=== PATIENT | female | born 1955 | race Caucasian/White ===

== ENCOUNTER → 2020-09-01 | Emergency (ER) | payer OTHER ==
[~2020-09-01] MED LIST: FAMOTIDINE 20 MG/2 ML VIAL IV ONE; LORAZEPAM 1 MG TABLET ONE; LORazepam 2 MG/ML VIAL ONE; METOCLOPRAMIDE 10 MG/2mL INJ ONE
[2020-09-01 10:15] LABS: Absolute Lymphocytes (CBC) 2.1 K/uL (0.7-4.9); Basophils % 1.1 % (0-1.3); Hematocrit 39.7 % (36.0-45.0); Lymphocytes % 34.1 % (15.3-44.8); MPV 7.6 fL (7.6-11.3); RBC Red Blood Cell Count 4.45 M/uL (3.86-4.86)
--- NOTE | 2020-09-01 10:17 | RAD REPORT ---
EXAM DESCRIPTION: CT - Head Brain Wo Cont - 09/01/2020 10:04 am CLINICAL HISTORY: HEADACHE COMPARISON: HEAD BRAIN W O CONTRAST dated 12/19/2011 TECHNIQUE: Axial 5 mm thick images of the head were obtained without IV contrast. All CT scans are performed using dose optimization technique as appropriate and may include automated exposure control or mA/KV adjustment according to patient size. FINDINGS: No intracranial hemorrhage, mass, edema or shift of mid-line structures. No acute infarcti on changes seen. No abnormal extra-axial fluid collections. Ventricles are normal. Mastoid air cells and visualized portions of the paranasal sinuses are clear. No acute bony findings. No significant changes from comparison. IMPRESSION: Negative non-contrast CT head examination.
[2020-09-01 11:14] LABS: ALT/SGPT 16 U/L (12-78); AST/SGOT 10 U/L (15-37); Albumin 3.6 g/dL (3.4-5.0); Alkaline Phosphatase 66 U/L (45-117); BUN Blood Urea Nitrogen 9 mg/dL (7-18); Bicarbonate 29 mmol/L (21-32); Bilirubin Direct 0.1 mg/dL (0-0.2); Bilirubin Total 0.5 mg/dL (0.2-1.0); Glucose Level 89 mg/dL (74-106); Magnesium 1.9 mg/dL (1.8-2.4); NT PRO-BNP 19 pg/mL (<125); Protein, Total 7.3 g/dL (6.4-8.2); Sodium Level 139 mmol/L (136-145); Troponin (Emerg Dept Use Only) < 0.02 ng/mL (0.0-0.045)
--- NOTE | 2020-09-01 11:40 | ER ---
Nurse's Notes [facility] Name: Nataliia Robin Age: 65 yrs Sex: Female : 1955 Arrival Date: 09/01/2020 Time: 09:03 Bed 19 Private MD: Diagnosis: Chest pain, unspecified Presentation: 09/01 09:21 Chief complaint: Patient states: i started having like a chest pain a week ago, that tw2 radiates to my upper back right after eating, tums and pepcid helped, but then food aggravated it so i stopped eating, it felt like a gallbladder attack pain but damon had mine removed, then this morning the pain started again in my upper chest but i hadnt eaten, then my LEFT eye started to be blurry at 0820am, i got the 2nd Covid vaccine Friday, then Friday i got a migraine, so i dont know if its from that, but also i got whelps about 6 days ago and had to get a steroid dose pack, also i took a baby aspirin this morning. Coronavirus screen: At this time, the client does not indicate any symptoms associated with coronavirus-19. Ebola Screen: Patient denies travel to an Ebola-affected area in the 21 days before illness onset. Initial Sepsis Screen: Does the patient meet any 2 criteria? No. Patient's initial sepsis screen is negative. Does the patient have a suspected source of infection? No. Patient's initial sepsis screen is negative. Risk Assessment: Do you want to hurt yourself or someone else? Patient reports no desire to harm self or others. Onset of symptoms was September 01, 2020. 09:21 Method Of Arrival: Ambulatory tw2 09:21 Acuity: ZION 3 tw2 Triage Assessment: 09:26 General: Appears in no apparent distress. slender, well groomed, Behavior is anxious. tw2 Pain: Complains of pain in xyphoid area and mid-sternal area Pain radiates to back. EENT: Reports blurred vision in left eye since 0820. Neuro: Level of Consciousness is awake, alert, obeys commands, Oriented to person, place, time, situation, Reports headache. Cardiovascular: Capillary refill < 3 seconds Patient's skin is warm and dry. Respiratory: Airway is patent Respiratory effort is even, unlabored, Respiratory pattern is regular, symmetrical. GI: No signs and/or symptoms were reported involving the gastrointestinal system. Abdomen is round non-distended. : No signs and/or symptoms were reported regarding the genitourinary system. Derm: No signs and/or symptoms reported regarding the dermatologic system. Musculoskeletal: Range of motion: intact in all extremities. Historical: - Allergies: 09: hydrocodone bitartrate (bulk); tw2 :25 ACETAMINOPHEN; tw2 :25 Latex, Natural Rubber; tw2 - Home Meds: : lisinopril 10 mg Oral tab 1 tab once daily [Active]; aspirin 81 mg Oral TbEC 1 tab once tw2 daily [Active]; gabapentin 300 mg oral cap 1 cap 2 times a day [Active]; "mag salt" [Active]; - PMHx: : Hypertension; Migraines; Fibromyalgia; tw2 - PSHx: : Cholecystectomy; Hysterectomy; tw2 - Immunization history:: Client reports receiving the 2nd dose of the Covid vaccine, Date received: August 28, 2020. - Social history:: Smoking status: Patient/guardian denies using alcohol, street drugs, The patient lives with family. - Family history:: not pertinent. Screenin:30 Abuse screen: Denies threats or abuse. Denies injuries from another. Nutritional tw2 screening: No deficits noted. Tuberculosis screening: Fall Risk None identified. Assessment: 09:28 Reassessment: see triage assessment. tw2 09:28 Reassessment: provider notified of pts triage information. tw2 09:31 Pain: Pain began 2-3 days ago. tw2 11:39 Reassessment: Patient and/or family updated on plan of care and expected duration. Pain tw2 level reassessed. Patient is alert, oriented x 3, equal unlabored respirations, skin warm/dry/pink. pt asking to speak to me, states "i am just too anxious, i am having a panic attack, the told me he wanted me to stay but i dont think i can i am just nervous, so maybe i need something", provider notified, medication offered to pt, pt states "i dont think i want it, i was addicted to pain pills so they said i shouldn't take anything", pt educated to medication ordered, pt refusing at this time, provider notified. 12:18 Reassessment: pt states " i am just not going to be able to be calm down enough to stay tw2 here, i just want to go home, i think i am having ptsd from my sister dying and being with her in a hospital for like 2 years", provider notified, educated as to the advise of being AMA. Vital Signs: 09:21 BP 160 / 87; Pulse 87; Resp 17; Temp 98.3(TE); Pulse Ox 99% on R/A; Weight 74.84 kg (R);tw2 10:40 BP 137 / 70; Pulse 72; Resp 19; Pulse Ox 99% on R/A; tw2 ED Course: 09:03 Patient arrived in ED. ds1 09:13 Nirmala Pena, JOÃO is Primary Nurse. tw2 09:23 Triage completed. tw2 09:26 Arm band placed on. tw2 09:28 Placed in gown. Bed in low position. Call light in reach. salvage engineering technician on. Pulse ox tw2 on. NIBP on. 09:31 Luz Small MD is Attending Physician. ma2 09:31 Patient maintains SpO2 saturation greater than 95% on room air. tw2 09:55 Inserted saline lock: 20 gauge in right antecubital area, using aseptic technique. tw2 Blood collected. 10:04 CT Head Brain wo Cont In Process Unspecified. EDMS 10:14 XRAY Chest (1 view) In Process Unspecified. EDMS 11:39 Dada Cox MD is Hospitalizing Provider. ma2 12:12 IV discontinued, intact, bleeding controlled, No redness/swelling at site. Pressure tw2 dressing applied. Administered Medications: 09:55 Drug: Pepcid (famotidine) 20 mg Route: IVP; Site: right antecubital; tw2 12:18 Follow up: Response: No adverse reaction tw2 09:59 Drug: Reglan 10 mg Route: IVP; Site: right antecubital; tw2 12:18 Follow up: Response: No adverse reaction tw2 11:42 Not Given (Patient Refused): Ativan 1 mg IVP once tw2 12:10 Drug: Ativan 1 mg Route: PO; tw2 12:18 Follow up: Response: No adverse reaction tw2 Outcome: 11:39 Decision to Hospitalize by Provider. ma2 12:12 AMA AMA form signed tw2 12:19 Patient left the ED. tw2 Signatures: Dispatcher [employer] ED Camelia Solo ds1 Nirmala Pena RN RN tw2 Luz Small MD MD ma2 Corrections: (The following items were deleted from the chart) 09:26 09:21 Chief complaint: Patient states: i started having like a chest pain a week ago, tw2 that radiates to my upper back right after eating, tums and pepcid helped, but then food aggravated it so i stopped eating, it felt like a gallbladder attack pain but damon had mine removed, then this morning the pain started again in my upper chest but i hadnt eaten, then my LEFT eye started to be blurry at 0820am, i got the 2nd Covid vaccine Friday, then Friday i got a migraine, so i dont know if its from that, but also i got whelps about 6 days ago and had to get a steroid dose pack tw2 12: 12:18 Reassessment: pt states " i am just not going to be able to be calm down enough tw2 to stay here, i just want to go home" tw2
--- NOTE | 2020-09-01 11:40 | EDPHYS ---
Physician Documentation [facility] Name: Nataliia Robin Age: 65 yrs Sex: Female : 1955 Arrival Date: 09/01/2020 Time: 09:03 Bed 19 Private MD: ED Physician Luz Small HPI: 09/01 09:53 This 65 yrs old Female presents to ER via Ambulatory with complaints of Chest ma2 Pain, Blurred Vision. 09:53 The patient or guardian reports chest pain that is located primarily in the substernal ma2 area. Onset: gradually, 6 day(s) ago. Associated signs and symptoms: Pertinent negatives: cough, dizziness, lower extremity pain, lightheadedness, shortness of breath, syncope. Severity of pain: At its worst the pain was moderate in the emergency department the pain is unchanged. The patient has not experienced similar symptoms in the past. Historical: - Allergies: 09:25 hydrocodone bitartrate (bulk); tw2 09:25 ACETAMINOPHEN; tw2 09:25 Latex, Natural Rubber; tw2 - Home Meds: 09:25 lisinopril 10 mg Oral tab 1 tab once daily [Active]; aspirin 81 mg Oral TbEC 1 tab once tw2 daily [Active]; gabapentin 300 mg oral cap 1 cap 2 times a day [Active]; "mag salt" [Active]; - PMHx: 09:25 Hypertension; Migraines; Fibromyalgia; tw2 - PSHx: 09:25 Cholecystectomy; Hysterectomy; tw2 - Immunization history:: Client reports receiving the 2nd dose of the Covid vaccine, Date received: August 28, 2020. - Social history:: Smoking status: Patient/guardian denies using alcohol, street drugs, The patient lives with family. - Family history:: not pertinent. ROS: 09:53 Constitutional: Negative for fever, chills, and weight loss. ma2 09:53 All other systems are negative. Exam: :53 Constitutional: This is a well developed, well nourished patient who is awake, alert, ma2 and in no acute distress. Head/Face: Normocephalic, atraumatic. Eyes: Pupils equal round and reactive to light, extra-ocular motions intact. Lids and lashes normal. Conjunctiva and sclera are non-icteric and not injected. Cornea within normal limits. Periorbital areas with no swelling, redness, or edema. ENT: Nares patent. No nasal discharge, no septal abnormalities noted. Tympanic membranes are normal and external auditory canals are clear. Oropharynx with no redness, swelling, or masses, exudates, or evidence of obstruction, uvula midline. Mucous membranes moist. Neck: Trachea midline, no thyromegaly or masses palpated, and no cervical lymphadenopathy. Supple, full range of motion without nuchal rigidity, or vertebral point tenderness. No Meningismus. Chest/axilla: Normal chest wall appearance and motion. Nontender with no deformity. No lesions are appreciated. Cardiovascular: Regular rate and rhythm with a normal S1 and S2. No gallops, murmurs, or rubs. Normal PMI, no JVD. No pulse deficits. Respiratory: Lungs have equal breath sounds bilaterally, clear to auscultation and percussion. No rales, rhonchi or wheezes noted. No increased work of breathing, no retractions or nasal flaring. Abdomen/GI: Soft, non-tender, with normal bowel sounds. No distension or tympany. No guarding or rebound. No evidence of tenderness throughout. Skin: Warm, dry with normal turgor. Normal color with no rashes, no lesions, and no evidence of cellulitis. MS/ Extremity: Pulses equal, no cyanosis. Neurovascular intact. Full, normal range of motion. Neuro: Awake and alert, GCS 15, oriented to person, place, time, and situation. Cranial nerves II-XII grossly intact. Motor strength 5/5 in all extremities. Sensory grossly intact. Cerebellar exam normal. Normal gait. Vital Signs: 09:21 BP 160 / 87; Pulse 87; Resp 17; Temp 98.3(TE); Pulse Ox 99% on R/A; Weight 74.84 kg (R);tw2 10:40 BP 137 / 70; Pulse 72; Resp 19; Pulse Ox 99% on R/A; tw2 MDM: 09:31 Patient medically screened. ma2 11:38 Differential diagnosis: abnormal EKG, coronary artery disease chest wall pain, ma2 gastroesophageal reflux disease (GERD), stable angina. HEART Score: History: Moderately Suspicious (1), ECG: Non specific repolarization disturbance / LBTB / PM (1), Age: < or = 45 years (0), Risk Factors: > or = 3 Risk factors for atherosclerotic disease (2), Troponin: < or = 1 x Normal Limit (0), Total Score = 3. Data reviewed: vital signs, nurses notes, EMS record. Counseling: I had a detailed discussion with the patient and/or guardian regarding: the historical points, exam findings, and any diagnostic results supporting the discharge/admit diagnosis, the presence of at least one elevated blood pressure reading (>120/80) during this emergency department visit, the need for outpatient follow up. 09/01 09:31 Order name: Basic Metabolic Panel [facility] 09/01 09:31 Order name: CBC with Diff [facility] 09/01 09:31 Order name: LFT's [facility] 09/01 09:31 Order name: Magnesium; Complete Time: 11:36 [facility] 09/01 09:31 Order name: NT PRO-BNP; Complete Time: 11:36 [facility] 09/01 09:31 Order name: PT-INR; Complete Time: 11:11 [facility] 09/01 09:31 Order name: Troponin (emerg Dept Use Only); Complete Time: 11:36 [facility] 09/01 09:31 Order name: XRAY Chest (1 view) [facility] 09/01 09:32 Order name: Basic Metabolic Panel; Complete Time: 11:36 [facility] 09/01 09:32 Order name: CBC with Automated Diff; Complete Time: 11:11 [facility] 09/01 09:32 Order name: Liver (Hepatic) Function; Complete Time: 11:36 [facility] 09/01 09:35 Order name: Lipase [facility] 09/01 09:36 Order name: Lipase; Complete Time: 11:11 [facility] 09/01 11:59 Order name: COVID-19 : Document "Date of Symptom Onset" if Symptomatic. 09/01 09:31 Order name: EKG; Complete Time: 09:32 wv2 09/01 09:31 Order name: Cardiac monitoring; Complete Time: 10:03 [facility] 09/01 09:31 Order name: EKG - Nurse/Tech; Complete Time: 10:03 wv2 09/01 09:31 Order name: IV Saline Lock; Complete Time: 10:03 [facility] 09/01 09:31 Order name: Labs collected and sent; Complete Time: 10:03 [facility] 09/01 09:31 Order name: O2 Per Protocol; Complete Time: 10:03 ma2 09/01 09:31 Order name: O2 Sat Monitoring; Complete Time: 10:03 wv2 09/01 09:49 Order name: CT Head Brain wo Cont; Complete Time: 11:11 ma2 Administered Medications: 09:55 Drug: Pepcid (famotidine) 20 mg Route: IVP; Site: right antecubital; tw2 12:18 Follow up: Response: No adverse reaction tw2 09:59 Drug: Reglan 10 mg Route: IVP; Site: right antecubital; tw2 12:18 Follow up: Response: No adverse reaction tw2 11:42 Not Given (Patient Refused): Ativan 1 mg IVP once tw2 12:10 Drug: Ativan 1 mg Route: PO; tw2 12:18 Follow up: Response: No adverse reaction tw2 Disposition: 09/01/20 11:39 Hospitalization ordered by Dada Cox for Observation. Preliminary diagnosis is Chest pain, unspecified. - Bed requested for Telemetry/MedSurg (observation). - Status is Observation. tw2 - Condition is Stable. - Problem is new. - Symptoms are unchanged. Signatures: Dispatcher [employer] Nirmala Maria RN RN tw2 Luz Small MD MD wv2 Corrections: (The following items were deleted from the chart) 12:19 11:39 Hospitalization Ordered by Dada Cox MD for Observation. Preliminary tw2 diagnosis is Chest pain, unspecified. Bed requested for Telemetry/MedSurg (observation). Status is Observation. Condition is Stable. Problem is new. Symptoms are unchanged. ma2
--- NOTE | 2020-09-01 12:31 | P.PN ---
Date of Service: 09/01/20 65yo with chest pain. PMH: HTN, fibromyalgia. I was paged by ED physician for observation to r/o ACS given risk factors. Patient left AMA a few minutes prior to me seeing her.
--- NOTE | 2020-09-01 12:54 | RAD REPORT ---
EXAM DESCRIPTION: RAD - Chest Single View - 09/01/2020 10:13 am CLINICAL HISTORY: CONGESTION, chest pain COMPARISON: May 2013 portable TECHNIQUE: AP portable chest image was obtained 09/01/2020 10:13 am . FINDINGS: Lungs are clear. Interstitial pattern matches comparison. No hilar mass or lymphadenopathy identified. Heart and vasculature are normal. No measurable pleural effusion and no pneumothorax. No acute bony abnormality seen. No acute aortic findings suspected. IMPRESSION: No acute cardiopulmonary process. No significant change from comparison study.
[2020-09-02 02:05] VITALS: TEMP 98.3; O2SAT 99
[2020-09-02 02:13] VITALS: BP 137/70
== END ==
LOC: ER 09:00
DX: R07.9 Chest pain, unspecified (principal); I10 Essential (primary) hypertension; Z79.82 Long term (current) use of aspirin; Z88.5 Allergy status to narcotic agent; Z88.6 Allergy status to analgesic agent; Z91.040 Latex allergy status; Z91.048 Other nonmedicinal substance allergy status
CPT/HCPCS: 93005; 85025; 80048; 36415; 83735; 85610; 80076; 84484; 83690; 83880; 70450; 71045; 96375; 96374; 99285; J2765

== ENCOUNTER 2024-01-07 00:49 | Emergency (ER) | payer OTHER ==
--- OUTSIDE RECORDS SUMMARY | 2024-01-07 00:53 | XMS REPORT | Continuity of Care Document ---
Author Name Unknown Address [address] [facility] [address] [place] [address] [facility] Address [address] [facility] [address] [place] [address] Care Team Providers Care [facility] Skilled Maintenance Supervisor Name Role Phone Linda GONZALES, Gregory Cote Primary Care Physician + [phone] Brad Magana Attending Clinician Unavailable KINJAL PRITCHETT Attending Clinician Unavailable NADER OTERO Attending Clinician Unavailab DENNY Jimenez Attending Clinician UnavailOMID Saucedo Attending Clinician Unavailable LAB90 Attending Clinician Unavailable Kinjal Pritchett DO Attending Clinician [phone] [facility] Attending Clinician Richardson Perez MD, Mercy Diaz Attending Clinician [phone] Payers Payer Name Policy Type Policy Number Effective Date Expirati on Date Source AEHERBIE CAMPO PPO 5 [id number] 2021 00:00:00 MEDICARE-PART B 5 [id number] 2020 00:00:00 [facility] 15 [id number] 2020 00:00:00 AETNA C1 [id number] [facility] AETNA C1 [id number] [facility] Problems Condition Name Condition Details Condition Category Status Onset Date Resolution Date Last Treatment Date Treating Clinician Comments Source Elevated blood pressure reading with diagnosis of hypertensi on Elevated blood pressure reading with diagnosis of hypertensi on Disease Active 5-14 00:00: 00 Jaye Claytonold - Externa l Primary insomnia Primary insomnia Disease Active 2021-06 0-13 00:00: 00 Jaye Claytonold - Externa l Hyperlipid emia Hyperlipid emia Disease Active 01-19 00:00: 00 Jaye Claytonold - Externa l Fatigue Fatigue Disease Active 01-19 00:00: 00 Jaye Claytonold - Externa l Chronic low back pain Chronic low back pain Disease Active 09-04 00:00: 00 Overview: Formattin g of this note might be different from the original. On gabapenti n Jaye Claytonold - Externa l Essential hypertensi on Essential hypertensi on Disease Active 4 00:00: 00 Jaye Claytonold - Externa l Migraine without status migrainosu s, not intractabl e Migraine without status migrainosu s, not intractabl e Disease Active 405 00:00: 00 Overview: Formattin g of this note might be different from the original. On maxalt prn Jaye Claytonold - Externa l GERD (gastroeso phageal reflux disease) GERD (gastroeso phageal reflux disease) Disease Active 05 00:00: 00 Jaye Claytonold - Externa l Social History Social Habit Start Date Stop Date Quantity Comments Source Gender identity 2020-08-29 14:55:09 Identifies as female gender (finding) Jaye Jimenez - External Sexual orientation 2020-08-29 14:55:09 Heterosexual (finding) Jaye Jimenez - External Exposure to SARS-CoV-2 (event) Not sure Jaye yoon History of tobacco use Cigarette Smoker Jaye el - External Sex Assigned At [facility] History of Social function 2022-10-16 00:00:00 2022-10-16 00:00:00 Jaye Kingstongaronikko Abram Mercado Smoking Status Start Date Stop Date Source Ex-smoker 2023-10-14 00:00:00 2023-10-14 00:00:00 Adrienne sanford Segaronikko Abram Mercado Never Smoker [facility] Medications Ordered Medication Name Filled Medication Name Start Date Stop Date Current Medication? Ordering Clinician Indication Dosage Frequency Signature (SIG) Comments Components Source Rosuvastati n Calcium 5 MG oral Tablet - 00:00: 00 Yes [id number] 5mg Take 1 tablet (5 mg total) by mouth daily. Jaye hearn Gabapentin 300 MG oral Capsule 17 00:00: 00 Yes [id number] 300mg Take 1 capsule (300 mg total) by mouth daily. Jaye hearn Rizatriptan Benzoate 10 MG oral TABLET DISPERSIBLE 09-16 00:00: 00 Yes [id number] TAKE 1 TABLET BY MOUTH UPON ONSET OF MIGRAINE HEADACHE. MAY REPEAT IN 2 HOURS. MAX DOSE IS 20 MG PER 24 HOUR PERIOD.. Jaye hearn Rosuvastati n Calcium 5 MG oral Tablet 10-16 00:00: 00 Yes [id number] 5mg Take 1 tablet (5 mg total) by mouth daily Jaye hearn Doxepin HCl 6 MG oral Tablet 17 00:00: 00 Yes [id number] 6{tbl} QD Take 6 tablets by mouth nightly as needed (insomnia) Jaye hearn Rizatriptan Benzoate 10 MG oral TABLET DISPERSIBLE -28 00:00: 00 Yes [id number] Upon onset of migraine headache. May repeat in 2 hours. Max dose is 20 mg per 24 hour period. Jaye hearn Gabapentin 100 MG oral Capsule 3-20 00:00: 00 Yes [id number] TAKE 2 CAPSULES BY MOUTH DAILY. Jaye hearn Doxepin HCl 3 MG oral Tablet 2-16 00:00: 00 10-16 00:00 :00 No [id number] TAKE 1 TABLET BY MOUTH EVERY DAY AT NIGHT NEEDED Jaye hearn Ciprofloxac in HCl (Cipro) 500 MG oral Tablet 2-04 00:00: 00 10-16 00:00 :00 No [id number] 500mg Take 1 tablet (500 mg total) by mouth 2 times daily for 5 days Jaye hearn TRIMETHOPRI M-SULFAMETH OXAZOLE (BACTRIM DS) 800-160 MG oral Tablet 07-02 00:00: 00 10-16 00:00 :00 No [id number] 1{tbl} Take 1 tablet by mouth 2 times daily for 3 days Jaye hearn Simvastatin 10 MG oral Tablet 2021-06 00:00: 00 10-16 00:00 :00 No [id number] TAKE ONE (1) TABLET(S) BY MOUTH AT BEDTIME. Jaye hearn Acetaminoph en-Codeine 300-30 MG oral Tablet 2021-06 00:00: 00 10-16 00:00 :00 No [id number] 1{tbl} Q.38411943 [id number] 3D Take 1 tablet by mouth every 8 hours as needed for pain Jaye hearn Aspirin (Aspirin 81) 81 MG oral Chewable Tablet 10-26 15:24: 54 10-26 00:00 :00 No 1{tbl} Take 1 tablet by mouth Jaye Jimenez Doxycycline Hyclate 100 MG oral Capsule 10-26 15:24: 48 10-26 00:00 :00 No doxycyclin e hyclate 100 mg capsule TAKE 1 CAPSULE BY MOUTH TWICE A DAY FOR 10 DAYS Jaye Jimenez TRIMETHOPRI M-SULFAMETH OXAZOLE 800-160 MG oral Tablet 10-26 00:00: 00 10-30 04:59 :00 No [id number] 1{tbl} Take 1 tablet by mouth in the morning and 1 tablet in the evening. Do all this for 3 days. Jaye Jimenez Lisinopril 10 MG oral Tablet 3-25 00:00: 00 10-26 00:00 :00 No 10mg Take 10 mg by mouth daily Jaye Jimenez Lisinopril 5 MG oral Tablet 2-28 00:00: 00 10-26 00:00 :00 No [id number] 5mg Take 1 tablet (5 mg total) by mouth daily Jaye Jimenez hydrOXYzine HCl 50 MG oral Tablet 2-17 00:00: 00 10-26 00:00 :00 No [id number] 50mg Q.[id number] 3D TAKE 1 TABLET (50 MG TOTAL) BY MOUTH EVERY 8 HOURS NEEDED FOR ITCHING Jaye Jimenez Aspirin (Aspirin 81) 81 MG oral Chewable Tablet 07-02 11:44: 35 Yes 1{tbl} Take 1 tablet by mouth aJye Jimenez Lisinopril 5 MG oral Tablet 07-02 00:00: 00 Yes [id number] 5mg Take 1 tablet (5 mg total) by mouth daily Jaye Jimenez Gabapentin 300 MG oral Capsule 1-10 00:00: 00 Yes 300mg Take 1 capsule (300 mg total) by mouth 3 times daily Jaye Jimenez Simvastatin 10 MG oral Tablet 2020-06- 00:00: 00 Yes [id number] TAKE ONE (1) TABLET(S) BY MOUTH AT BEDTIME. Jaye Jimenez Ibuprofen 800 MG oral Tablet 2020-06-18 00:00: 00 10-26 00:00 :00 No 800mg Q.25D Take 1 tablet (800 mg total) by mouth every 6 hours as needed for pain Jaye Jimenez Acetaminoph en-Codeine 300-30 MG oral Tablet 02-22 15:27: 01 02-22 00:00 :00 No acetaminop hen 300 mg-codeine 30 mg tablet TAKE 1 TABLET BY MOUTH EVERY 12 HOURS FOR 7 DAYS NEEDED Jaye Jimenez Aspirin (Aspirin 81) 81 MG oral Chewable Tablet 02-22 15:26: 48 02-22 00:00 :00 No 1{tbl} Take 1 tablet by mouth daily Jaye Jimenez Aspirin (Aspirin 81) 81 MG oral Chewable Tablet 02-22 14:45: 29 Yes 1{tbl} Take 1 tablet by mouth Jaye Jimenez ASA-CAFF-BU TALBITAL-CO DEINE 50-325-40-3 0 MG oral Capsule 02-22 00:00: 00 Yes [id number] 1{capsu le} Q.25D Take 1 capsule by mouth every 6 hours as needed for pain Jaye Jimenez Simvastatin 10 MG oral Tablet 02-14 00:00: 00 Yes [id number] TAKE ONE (1) TABLET(S) BY MOUTH AT BEDTIME. Jaye Jimenez hydrOXYzine HCl 50 MG oral Tablet 02-14 00:00: 00 Yes [id number] 50mg Q8H Take 1 tablet (50 mg total) by mouth every 8 hours as needed for itching Jaye Jimenez methylPREDN ISolone 4 MG oral Tablet Therapy Pack 02-14 00:00: 00 10-26 00:00 :00 No [id number] 1{haley} Take 1 haley by mouth See Admin Instructio ns Use as directed Jaye Jimenez Lisinopril 10 MG oral Tablet 02-14 00:00: 00 07-02 00:00 :00 No [id number] 10mg Take 1 tablet (10 mg total) by mouth daily Jaye Jimenez Doxycycline Hyclate 100 MG oral Capsule 02-14 00:00: 00 02-25 04:59 :00 No [id number] 100mg Take 1 capsule (100 mg total) by mouth 2 times daily for 10 days Jaye Jimenez Aspirin (Aspirin 81) 81 MG oral Chewable Tablet 01-19 14:49: 43 Yes 1{tbl} Take 1 tablet by mouth daily Jaye Jimenez Acetaminoph en-Codeine 300-30 MG oral Tablet 01-19 14:49: 43 Yes acetaminop hen 300 mg-codeine 30 mg tablet TAKE 1 TABLET BY MOUTH EVERY 12 HOURS FOR 7 DAYS NEEDED Jaye Jimenez Acetaminoph en-Codeine #3 300-30 MG oral Tablet 12-12 00:00: 00 Yes 1{tbl} Take 1 tablet by mouth as needed Jaye Jimenez Estradiol 0.1 MG/GM Estradiol 0.1 MG/GM 6-16 00:00: 00 No Estradiol 0.1 MG/GM Cefdinir 300 MG oral Capsule 4-20 00:00: 00 02-14 00:00 :00 No [id number] 300mg Take 1 capsule (300 mg total) by mouth 2 times daily Jaye Jimenez Nitrofurant oin Monohyd Macro 100 MG oral Capsule 4-08 00:00: 00 02-14 00:00 :00 No [id number] 100mg Take 1 capsule (100 mg total) by mouth 2 times daily Jaye Jimenez Tramadol HCl 50 MG oral Tablet 4-05 00:00: 00 02-14 00:00 :00 No [id number] 50mg Q6H Take 1 tablet (50 mg total) by mouth every 6 hours as needed for pain Jaye Jimenez hydrOXYzine HCl 50 MG oral Tablet 3-25 00:00: 00 02-14 00:00 :00 No 1{tbl} Q8H Take 1 tablet by mouth every 8 hours as needed for itching Jaye Jimenez Lisinopril 20 MG oral Tablet 3-22 00:00: 00 02-14 00:00 :00 No 20mg Take 20 mg by mouth daily Jaye Jimenez Diclofenac Sodium 50 MG oral Tablet Delayed Response 2-04 00:00: 00 Yes 50mg Q.[id number] 3D Take 50 mg by mouth 3 times daily as needed for pain Jaye Jimenez Rizatriptan Benzoate 10 MG oral TABLET DISPERSIBLE 2-02 00:00: 00 10-26 00:00 :00 No ORAL TAKE 1 TABLET BY MOUTH AT START OF MIGRAINE. MAY REPEAT IN 2 HRS. DO NOT EXCEED 3 TABS A DAY Jaye Jimenez Aspirin 81 81 MG Aspirin 81 81 MG No 1{table t} QD Aspirin 81 81 MG Maxalt-HOSIERY REPAIRER 10 MG Maxalt-HOSIERY REPAIRER 10 MG No 1{table t} QD Maxalt-HOSIERY REPAIRER 10 MG Gabapentin 300 MG Gabapentin 300 MG No 1{capsu le} QD Gabapentin 300 MG Lisinopril 10 MG Lisinopril 10 MG No 1{table t} QD Lisinopril 10 MG Immunizations Ordered Immunization Name Filled Immunization Name Date Status Comments Source Shingles IM (Shingrix) Unknown Completed Jaye Seybold - External Shingles IM (Shingrix) Unknown Completed Jaye Seybold - External Vital Signs Vital Name Observation Time Observation Value Comments S ource Systolic blood pressure 2023-10-14 21:37:00 130 mm[Hg] Jaye Seybo ld - External Diastolic blood pressure 2023-10-14 21:37:00 68 mm[Hg] Jaye Seybo ld - External Heart rate 2023-10-14 21:37:00 92 /min Kelse y Seybold - External Body temperature 2023-10-14 21:37:00 36.72 Neva Ajye Seybold - External Respiratory rate 2023-10-14 21:37:00 20 /min Jaye Seybold - External Body height 2023-10-14 21:37:00 170.2 cm Aurora ey Seybold - External Body weight 2023-10-14 21:37:00 91.173 kg Aurora ey Seybold - External BMI 2023-10-14 21:37:00 31.48 kg/m2 Aurora ey Seybold - External Oxygen saturation in Arterial blood by Pulse oximetry 2023-10-14 21:37:00 99 /min Jaye Seybo ld - External Systolic blood pressure 2022-10-16 19:09:00 144 mm[Hg] Jaye Seybo ld - External Diastolic blood pressure 2022-10-16 19:09:00 72 mm[Hg] Jaye Seybo ld - External Heart rate 2022-10-16 19:09:00 74 /min Kelse y Seybold - External Body temperature 2022-10-16 19:09:00 36.89 Neva Jaye Seybold - External Respiratory rate 2022-10-16 19:09:00 16 /min Jaye Seybold - External Body height 2022-10-16 19:09:00 170.2 cm Aurora ey Seybold - External Body weight 2022-10-16 19:09:00 72.576 kg Aurora ey Seybold - External BMI 2022-10-16 19:09:00 25.06 kg/m2 Aurora ey Seybold - External Oxygen saturation in Arterial blood by Pulse oximetry 2022-10-16 19:09:00 98 /min Jaye Kingstonybo ld - External Systolic blood pressure 2021-10-26 20:22:00 132 mm[Hg] Jaye Seybo ld Diastolic blood pressure 2021-10-26 20:22:00 64 mm[Hg] Jaye Seybo ld Heart rate 2021-10-26 20:22:00 91 /min Kelse y Seybold Body temperature 2021-10-26 20:22:00 37.17 Neva Jaye Seybold Respiratory rate 2021-10-26 20:22:00 14 /min Jaye Seybold Body height 2021-10-26 20:22:00 170.2 cm Aurora ey Seybold Body weight 2021-10-26 20:22:00 76.34 kg Aurora ey Seybold BMI 2021-10-26 20:22:00 26.36 kg/m2 Aurora ey Seybold Oxygen saturation in Arterial blood by Pulse oximetry 2021-10-26 20:22:00 98 /min Jaye Seybo ld Systolic blood pressure 2021-07-02 17:39:00 118 mm[Hg] Jaye Seybo ld Diastolic blood pressure 2021-07-02 17:39:00 64 mm[Hg] Jaye Seybo ld Heart rate 2021-07-02 17:39:00 72 /min Kelse y Seybold Body temperature 2021-07-02 17:39:00 36.89 Neva Jaye Seybold Respiratory rate 2021-07-02 17:39:00 14 /min Jaye Seybold Body height 2021-07-02 17:39:00 170.2 cm Aurora ey Seybold Body weight 2021-07-02 17:39:00 77.565 kg Aurora ey Seybold BMI 2021-07-02 17:39:00 26.78 kg/m2 Aurora ey Seybold Systolic blood pressure 2021-02-22 19:38:00 108 mm[Hg] Jaye Seybo ld Diastolic blood pressure 2021-02-22 19:38:00 60 mm[Hg] Jaye Kingstonbrennan israel Heart rate 2021-02-22 19:38:00 82 /min Karlie Jimenez Body temperature 2021-02-22 19:38:00 36.89 Neva Jaye Jimenez Respiratory rate 2021-02-22 19:38:00 12 /min Jaye Jimenez Body height 2021-02-22 19:38:00 170.2 cm Aurora Jimenez Body weight 2021-02-22 19:38:00 84.097 kg Aurora ey ybnikko BMI 2021-02-22 19:38:00 29.04 kg/m2 Aurora Jimenez height 2020-11-15 10:40:00 67 [in_i] Commo n [facility] weight 2020-11-15 10:40:00 191.4 [lb_av] Co mmon [facility] temperature 2020-11-15 10:40:00 97.8 [degF] Com mon [facility] bmi 2020-11-15 10:40:00 29.97 kg/m2 Comm on [facility] oximetry 2020-11-15 10:40:00 97 % Commo n [facility] blood pressure systolic 2020-11-15 10:40:00 162 mm[Hg] [facility] blood pressure diastolic 2020-11-15 10:40:00 75 mm[Hg] [facility] Procedures Procedure Date / Time Performed Performing Clinicia n Source URINALYSIS NONAUTO W/O SCOPE 2022-10-16 19:31:42 Kinjal Pritchett - External URINALYSIS NONAUTO W/O SCOPE 2021-07-02 17:54:00 Mercy Perez Encounters Start Date/Time End Date/Time Encounter Type Admission Type Attending [facility] Care Department Encounter ID Source 2024-01-06 08:18:00 Outpatient MaganaBrad [facility] [id number] [facility] 2021-06-27 13:15:20 [facility] [id number] [facility] 2024-01-05 00:00:00 2024-01-05 00:00:00 Outpatient PREZAS, KINJAL QURESHI JAYE [id number] [facility] 2024-01-02 15:30:00 2024-01-02 15:30:00 Outpatient PREZAS, KINJAL JAYE QURESHI [id number] [facility] 2023-11-17 14:00:00 2023-11-17 14:00:00 Outpatient PREZAS, KINJAL JAYE QURESHI [id number] [facility] 2023-10-29 00:00:00 2023-10-29 00:00:00 Outpatient PREZAS, KINJAL JAYE QURESHI [id number] [facility] 2023-10-14 16:30:00 2023-10-14 16:30:00 Outpatient BRANDENNADER JAYE QURESHI [id number] [facility] 2023-10-02 00:00:00 2023-10-02 00:00:00 Outpatient PREZAS, KINJAL JAYE QURESHI [id number] [facility] 2023-09-17 00:00:00 2023-09-17 00:00:00 Outpatient PREZAS, KINJAL JAYE QURESHI [id number] [facility] 2023-09-16 00:00:00 2023-09-16 00:00:00 Outpatient PREZAS, KINJAL JAYE QURESHI [id number] [facility] 2023-07-29 00:00:00 2023-07-29 00:00:00 Outpatient PREZAS, KINJAL QURESHI [id number] Jaye Seybold 2023-05-03 00:00:00 2023-05-03 00:00:00 Outpatient PREZAS, KINJAL QURESHI [id number] Jaye Seybold 2023-02-12 00:00:00 2023-02-12 00:00:00 Outpatient PREZAS, KINJAL QURESHI [id number] [facility] 2023-02-11 00:00:00 2023-02-11 00:00:00 Outpatient PREZAS, KINJAL QURESHI [id number] [facility] 2023-02-04 00:00:00 2023-02-04 00:00:00 Outpatient PREZAS, KINJAL QURESHI [id number] [facility] 2023-01-01 00:00:00 2023-01-01 00:00:00 Outpatient PREZAS, KINJAL QURESHI [id number] [facility] 2022-12-09 00:00:00 2022-12-09 00:00:00 Outpatient PREZAS, KINJAL QURESHI [id number] [facility] 2022-12-07 00:00:00 2022-12-07 00:00:00 Outpatient PREZAS, KINJAL QURESHI [id number] [facility] 2022-11-18 13:30:00 2022-11-18 13:30:00 Outpatient PREZAS, [facility]IN[facility]AL [facility]URESHI [id number] [facility] 2022-11-11 00:00:00 2022-11-11 00:00:00 Outpatient PREZAS, KINJAL QURESHI JAYE [id number] [facility] 2022-10-29 00:00:00 2022-10-29 00:00:00 Outpatient PREZAS, KINJAL QURESHI JAYE [id number] [facility] 2022-10-17 00:00:00 2022-10-17 00:00:00 Outpatient PREZAS, KINJAL QURESHI JAYE [id number] [facility] 2022-10-16 14:15:00 2022-10-16 14:15:00 Outpatient PREZAS, KINJAL QURESHI JAYE [id number] [facility] 2022-10-16 00:00:00 2022-10-16 00:00:00 Outpatient PREZAS, KINJAL QURESHI JAYE [id number] [facility] 2022-09-25 00:00:00 2022-09-25 00:00:00 Outpatient PREZAS, KINJAL NORMANIRAIS QURESHI [id number] [facility] 2022-09-07 00:00:00 2022-09-07 00:00:00 Outpatient YNESDENNY JAYE QURESHI [id number] [facility] 2022-09-06 00:00:00 2022-09-06 00:00:00 Outpatient PREZAS, KINJAL JAYE QURESHI [id number] [facility] 2022-08-17 00:00:00 2022-08-17 00:00:00 Outpatient PREZAS, KINJAL JAYE QRUESHI [id number] [facility] 2022-07-18 00:00:00 2022-07-18 00:00:00 Outpatient PREZAS, KINJAL JAYE QURESHI [id number] [facility] 2022-07-06 00:00:00 2022-07-06 00:00:00 Outpatient HUNDL, OMID JAYE QURESHI [id number] [facility] 2022-07-02 09:25:00 2022-07-02 09:25:00 Outpatient JT JAYE QURESHI [id number] [facility] 2022-07-02 00:00:00 2022-07-02 00:00:00 Outpatient PREZAS, KINJAL JAYE QURESHI [id number] [facility] 2022-07-01 00:00:00 2022-07-01 00:00:00 Outpatient HUNDOMID Hearn JAYE QURESHI [id number] [facility] 2022-06-19 00:00:00 2022-06-19 00:00:00 Outpatient PREZAS, KINJAL JAYE QURESHI [id number] [facility] 2022-05-09 00:00:00 2022-05-09 00:00:00 Outpatient PREZAS, KINJAL QURESHI [id number] Jaye Seybold 2022-04-11 13:45:00 2022-04-11 13:45:00 Outpatient PREZAS, KINJAL QURESHI [id number] [facility] 2022-04-08 00:00:00 2022-04-08 00:00:00 Outpatient PREZAS, KINJAL QURESHI [id number] [facility] 2022-04-08 00:00:2022-04-08 00:00:00 Outpatient PREZAS, KINJAL QURESHI [id number] [facility] 2022-04-08 00:00:00 2022-04-08 00:00:00 Outpatient PREZAS, KINJAL QURESHI [id number] [facility] 2022-03-14 15:30:00 2022-03-14 15:30:00 Outpatient PREZASKINJAL JAYE [id number] [facility] 2022-03-14 00:00:00 2022-03-14 00:00:00 Outpatient PREZAS, KINJAL QURESHI JAYE [id number] [facility] 2022-03-05 00:00:00 2022-03-05 00:00:00 Outpatient PREZAS, KINJAL QURESHI [id number] [facility] 2022-03-05 00:00:00 2022-03-05 00:00:00 Outpatient PREZASKINJAL JAYE [id number] [facility] 2021-11-26 00:00:00 2021-11-26 00:00:00 Outpatient PREZASKINJAL [id number] Jaey [facility] 2021-10-26 15:30:00 2021-10-26 15:45:00 Office Visit Kinjal Pritchett [id number] [facility] 2021-10-26 14:45:00 2021-10-26 14:45:00 Outpatient PREZAKINJAL Don JAYE [id number] [facility] 2021-08-21 00:00:00 2021-08-21 00:00:00 Outpatient MERCY PEREZ [id number] [facility] 2021-07-29 00:00:00 2021-07-29 00:00:00 Outpatient MERCY PEREZ [id number] [facility] 2021-07-19 00:00:00 2021-07-19 00:00:00 Outpatient MERCY PEREZ JAYE [id number] [facility] 2021-07-02 12:30:00 2021-07-02 12:30:00 Outpatient JT QURESHI JAYE [id number] [facility] 2021-07-02 11:30:00 2021-07-02 12:00:00 Office Visit Mercy Perez Holloway [id number] [facility] 2021-06-11 00:00:00 2021-06-11 00:00:00 Outpatient MERCY PEREZ JAYE QURESHI [id number] [facility] 2021-05-14 00:00:00 2021-05-14 00:00:00 Outpatient MERCY PEREZ JAYE QURESHI [id number] [facility] 2021-05-07 00:00:00 2021-05-07 00:00:00 Outpatient MERCY PEREZ JAYE QURESHI [id number] [facility] 2021-04-19 00:00:00 2021-04-19 00:00:00 Outpatient MERCY PEREZ JAYE QURESHI [id number] [facility] 2021-02-22 14:31:29 2021-02-22 15:01:29 Office Visit Mercy Perez Holloway [id number] [facility] 2021-02-22 00:00:00 2021-02-22 00:00:00 Outpatient MERCY PEREZ JAYE QURESHI [id number] [facility] 2021-02-16 00:00:00 2021-02-16 00:00:00 Outpatient [facility] [id number] [facility] 2021-02-14 16:15:18 2021-02-14 16:44:26 Telemedici ne Mercy Perez Holloway [id number] Jaye Jimenez 2021-01-19 15:55:00 2021-01-19 15:55:00 Outpatient LAB90 JAYE QURESHI [id number] Jaye Jimenez 2021-01-19 15:00:00 2021-01-19 15:00:00 Outpatient MERCY PEREZ [id number] Jaye Jimenez 2020-11-24 00:00:00 2020-11-24 00:00:00 (TEL) STLMLC STLMLC [id number] [facility] 2020-11-15 00:00:00 2020-11-15 00:00:00 OFFICE VISIT NEW PT LEVEL 3 STLMLC STLC [id number] [facility] Results Test Description Test Time Test Comments Results Result Co mments Source Jaye Jimenez - ExternalURINALYSIS NONAUTO W/O [id number] 17:54:00* Test Item Value Reference Range Interpretation Comme nts UD KETONES (test code = 716690) NEG 5-160 UD GLUCOSE (test code = 487165) NEG 100-2000 UD PROTEIN (test code = 930945) NEG Trace - 2000 mg/dL UD LEUKOCYTES (test code = 067443) NEG Trace - Large @ 2 min. UD NITRITE (test code = 697514) NEG Neg. - Pos. @ 60 sec. UD UROBILINOGEN (test code = 270410) 0.2 mg/dL 0.2-8 UD PH (test code = 476508) See_Comment [Automated [employer]] The system which generated this result transmitted reference range: 5.0 - 8.5 @ 60 sec.. The reference range was not used to interpret this result as normal/abnormal. UD BLOOD (test code = 771073) NEG Neg. - Large @ 60 sec. UD SPECIFIC GRAVITY (test code = 378685) See_Comment [Automated message] The system which generated this result transmitted reference range: 1.000 - 1.030 @ 45 sec.. The reference range was not used to interpret this result as normal/abnormal. UD BILIRUBIN (test code = 041730) NEG Neg. - Large @ 45 sec. Lab Interpretation (test code = 31460-6) Normal [facility]
[2024-01-07] MEDS ORDERED: ONDANSETRON 4 MG/2 ML VIAL ONE (01:47)
[2024-01-07] MEDS ORDERED: MORPHINE 4 MG/ML SYR ONE (01:47)
--- NOTE | 2024-01-07 02:31 | EDPHYS ---
Physician Documentation [facility] Name: Nataliia Robin Age: 68 yrs Sex: Female : 1955 Arrival Date: 01/07/2024 Time: 00:49 Bed 5 Private MD: ED Physician Rani Kent HPI: 01/06 01:57 This 68 yrs old Female presents to ER via Ambulatory with complaints of Fall Injury, sp3 Knee Pain. 01:57 68-year-old female with history of fibromyalgia, hypertension, migraines presents with sp3 continued left knee pain from a fall she sustained 11 days ago. Patient had a negative x-ray at that time and was placed in a knee immobilizer. Patient states that the swelling in her knee is continued to increase and now she has posterior calf pain on the left side. She has an appoint with Dr. Albarran tomorrow morning. She denies any new injury, shortness of breath, chest pain, or any other signs or symptoms on ROS at this time.. Historical: - Allergies: 01:36 No Known Allergies; vc1 - Home Meds: 01:36 gabapentin 100 mg Oral capsule 1 cap 2 times per day [Active]; vc1 - PMHx: 01:36 Fibromyalgia; Hypertension; Migraines; vc1 - Immunization history:: Adult Immunizations up to date. - Infectious Disease History:: Denies. - Social history:: Smoking status: Patient denies any tobacco usage or history of. ROS: 01:59 Constitutional: Negative for fever, chills, and weight loss, Eyes: Negative for injury, sp3 pain, redness, and discharge, ENT: Negative for injury, pain, and discharge, Neck: Negative for injury, pain, and swelling, Cardiovascular: Negative for chest pain, palpitations, and edema, Respiratory: Negative for shortness of breath, cough, wheezing, and pleuritic chest pain, Abdomen/GI: Negative for abdominal pain, nausea, vomiting, diarrhea, and constipation, Back: Negative for injury and pain, Skin: Negative for injury, rash, and discoloration, Neuro: Negative for headache, weakness, numbness, tingling, and seizure, Psych: Negative for depression, anxiety, suicide ideation, homicidal ideation, and hallucinations, Allergy/Immunology: Negative for hives, rash, and allergies, Endocrine: Negative for neck swelling, polydipsia, polyuria, polyphagia, and marked weight changes, 01:59 All other systems are negative, Exam: 01:59 Constitutional: This is a well developed, well nourished patient who is awake, alert, sp3 and in no acute distress. Head/Face: Normocephalic, atraumatic. Eyes: Pupils equal round and reactive to light, extra-ocular motions intact. Lids and lashes normal. Conjunctiva and sclera are non-icteric and not injected. Cornea within normal limits. Periorbital areas with no swelling, redness, or edema. ENT: Nares patent. No nasal discharge, no septal abnormalities noted. External auditory canals are clear. Oropharynx with no redness, swelling, or masses, exudates, or evidence of obstruction, uvula midline. Mucous membranes moist. Neck: Trachea midline, no thyromegaly or masses palpated, and no cervical lymphadenopathy. Supple, full range of motion without nuchal rigidity, or vertebral point tenderness. No Meningismus. Chest/axilla: Normal chest wall appearance and motion. Nontender with no deformity. No lesions are appreciated. Cardiovascular: Regular rate and rhythm with a normal S1 and S2. No gallops, murmurs, or rubs. Normal PMI, no JVD. No pulse deficits. Respiratory: Lungs have equal breath sounds bilaterally, clear to auscultation and percussion. No rales, rhonchi or wheezes noted. No increased work of breathing, no retractions or nasal flaring. Abdomen/GI: Soft, non-tender, with normal bowel sounds. No distension or tympany. No guarding or rebound. No evidence of tenderness throughout. Back: No spinal tenderness. No costovertebral tenderness. Full range of motion. Skin: Warm, dry with normal turgor. Normal color with no rashes, no lesions, and no evidence of cellulitis. Neuro: Awake and alert, GCS 15, oriented to person, place, time, and situation. Cranial nerves II-XII grossly intact. Motor strength 5/5 in all extremities. Sensory grossly intact. Cerebellar exam normal. Normal gait. Psych: Awake, alert, with orientation to person, place and time. Behavior, mood, and affect are within normal limits. 01:59 Musculoskeletal/extremity: Left knee effusion noted. Mild swelling on the posterior calf as well. Distal neurovascular exam is normal.. Vital Signs: 01:30 Pain 8/10; vc1 01:31 BP 141 / 73; Pulse 82; Resp 17 S; Temp 97.2(T); Pulse Ox 100% on R/A; Weight 90.26 kg; ha1 Height 5 ft. 6 in. ; 02:50 BP 129 / 62; Pulse 77; Resp 17; Temp 98; Pulse Ox 99% ; Pain 0/10; rg5 01:31 Body Mass Index 32.12 (90.26 kg, 167.64 cm) ha1 01:30 Pain Scale: Adult vc1 02:50 Pain Scale: Adult rg5 MDM: 01:29 Patient medically screened. 3 02:01 Data reviewed: vital signs, nurses notes, radiologic studies. ED course: 68-year-old 3 female with left lower extremity pain and swelling. Differential diagnosis includes worsening left knee effusion versus DVT versus both. Ultrasound pending. If ultrasound is negative, we will treat pain and discharge patient to Dr. Albarran's office for further evaluation on her's scheduled appointment.. 02:27 ED course: Ultrasound demonstrates no DVT. We will safely discharge patient home at [facility] this time.. 01/06 01:31 Order name: US Extremity Venous Unilateral Ltd 3 01/06 01:31 Order name: IV; Complete Time: 01:46 3 Administered Medications: 01:50 Drug: morphine IVP or IV 2 mg IVP once over 4 mins Route: IVP; Infused Over: 4 mins; rg5 Site: right antecubital; 02:06 Follow up: Response: No adverse reaction; Marked relief of symptoms; Pain is decreased; ha1 RASS: Alert and Calm (0) 01:50 Drug: Ondansetron IVP 4 mg IVP once; over 2 minutes Route: IVP; Site: right antecubital;rg5 02:06 Follow up: Response: No adverse reaction ha1 02:36 Drug: morphine IVP or IV 2 mg IVP once over 4 mins Route: IVP; Infused Over: 4 mins; rg5 Site: right antecubital; 02:48 Follow up: Response: Pain is decreased rg5 Disposition Summary: 01/07/24 02:31 Discharge Ordered Notes: Location: Home 3 Condition: Stable sp3 Diagnosis - Left knee effusion, left knee pain 3 Followup: sp3 - With: Bryan Albarran MD - When: Upon discharge from the Emergency Department - Reason: Continuance of care Discharge Instructions: - Discharge Summary Sheet sp3 - Knee Effusion sp3 Forms: - Medication Reconciliation Form sp3 - Antibiotic Education sp3 - Prescription Opioid Use sp3 - Patient Portal Instructions sp3 - Leadership Thank You Letter sp3 Signatures: Dispatcher [employer] EDMS Rani Kent MD MD sp3 Eleonora Amaya RN RN vc1 Danny Roman RN RN rg5 Eloisa Rose RN ha1 Corrections: (The following items were deleted from the chart) 01:31 01:31 Extremity Venous Uni Ltd+[email or web address].RAD.BRZ ordered. EDMO EDMS
--- NOTE | 2024-01-07 02:31 | ER ---
Nurse's Notes [facility] Name: Nataliia Robin Age: 68 yrs Sex: Female : 1955 Arrival Date: 01/07/2024 Time: 00:49 Bed 5 Private MD: Diagnosis: Left knee effusion, left knee pain Presentation: 01/06 01:26 Chief complaint: Chief complaint: Patient states: fell 11 days ago straight on my left vc1 knee. xray said no fracture, was sent home in a knee immobilizer, the pain keeps getting worse and it is very swollen. I can't bend my knee. 01:30 Coronavirus screen: Client denies travel out of the [place] in the last 14 days. At this vc1 time, the client does not indicate any symptoms associated with coronavirus-19. Ebola Screen: Patient negative for fever greater than or equal to 101.5 degrees Fahrenheit, and additional compatible Ebola Virus Disease symptoms Patient denies exposure to infectious person. Patient denies travel to an Ebola-affected area in the 21 days before illness onset. No symptoms or risks identified at this time. Initial Sepsis Screen: Does the patient meet any 2 criteria? No. Patient's initial sepsis screen is negative. Does the patient have a suspected source of infection? No. Patient's initial sepsis screen is negative. Risk Assessment: Do you want to hurt yourself or someone else? Patient reports no desire to harm self or others. Onset of symptoms was December 27, 2023. Care prior to arrival: Medication(s) given: Motrin, 600 mg, Tramadol. Activity prior to arrival: None. Mechanism of Injury: Fall standing. Transition of care: patient was not received from another setting of care. 01:30 Method Of Arrival: Ambulatory vc1 01:30 Acuity: ZION 3 vc1 Triage Assessment: 01:37 General: Appears in no apparent distress. uncomfortable, well groomed, well developed, vc1 well nourished, Behavior is calm, cooperative, appropriate for age. Pain: Complains of pain in left knee Pain radiates to left quadriceps and left reyes Pain currently is 8 out of 10 on a pain scale. Quality of pain is described as pressure, Aggravated by increased activity, repositioning, weight bearing. EENT: No deficits noted. No signs and/or symptoms were reported regarding the EENT system. Neuro: Level of Consciousness is awake, alert, obeys commands, Oriented to person, place, time, situation, Appropriate for age. Neuro:. Cardiovascular: No deficits noted. Cardiovascular:. Respiratory: Airway is patent Respiratory effort is even, unlabored, Breath sounds are clear bilaterally. GI: No deficits noted. No signs and/or symptoms were reported involving the gastrointestinal system. : No deficits noted. No signs and/or symptoms were reported regarding the genitourinary system. Derm: Bruising that is brown, yellow, on left knee. Derm: Derm:. Musculoskeletal: Tenderness present in left knee Reports pain in left knee Pain is 8 out of 10 on a pain scale. Historical: - Allergies: :36 No Known Allergies; vc1 - Home Meds: :36 gabapentin 100 mg Oral capsule 1 cap 2 times per day [Active]; vc1 - PMHx: :36 Fibromyalgia; Hypertension; Migraines; vc1 - Immunization history:: Adult Immunizations up to date. - Infectious Disease History:: Denies. - Social history:: Smoking status: Patient denies any tobacco usage or history of. Screenin:34 [facility] ED Fall Risk Assessment (Adult) History of falling in the last 3 months, ha1 including since admission Yes- single mechanical fall (1 pt) Confusion or Disorientation No (0 pts) Intoxicated or Sedated No (0 pts) Impaired Gait Yes (1 pt) Mobility Assist Device Used Yes (1 pt) Altered Elimination No (0 pt) Score/Fall Risk Level 3 or more points = High Risk Oriented to surroundings, Maintained a safe environment, Educated pt \T\ family on fall prevention, incl call for assistance when getting out of bed, Hourly rounding (assess needs \T\ fall precautionary measures) done. Abuse screen: Denies threats or abuse. Denies injuries from another. Nutritional screening: No deficits noted. Tuberculosis screening: No symptoms or risk factors identified. Primary Survey: 01:35 NO uncontrolled hemorrhage observed. Breathing/Chest: Spontaneous respiratory effort, ha1 equal unlabored respirations, breath sounds clear bilaterally, regular pattern, symmetrical chest rise and fall. Respiratory effort: spontaneous, unlabored. Circulation: No external hemorrhage present. Regular and strong central pulse, skin warm/dry/normal color. Disability Pupils are equal, round, reactive to light and accommodation. Assessment: 01:13 General: Appears uncomfortable, Behavior is calm, cooperative. Pain: Complains of pain ha1 in left knee Pain does not radiate. Pain currently is 9 out of 10 on a pain scale. Quality of pain is described as aching, Pain began gradually, Aggravated by increased activity, repositioning, weight bearing. Neuro: Level of Consciousness is awake, alert, obeys commands, Oriented to person, place, time, situation. Cardiovascular: Capillary refill < 3 seconds Patient's skin is warm and dry. Respiratory: Airway is patent Respiratory effort is even, unlabored, Respiratory pattern is regular, symmetrical. GI: No signs and/or symptoms were reported involving the gastrointestinal system. : No signs and/or symptoms were reported regarding the genitourinary system. Derm: Skin is normal, Bruising that is dark purple, yellow, on left knee. Musculoskeletal: Circulation, motion, and sensation intact. Reports pain in left knee. 02:06 Reassessment: Patient and/or family updated on plan of care and expected duration. Pain ha1 level reassessed. Patient is alert, oriented x 3, equal unlabored respirations, skin warm/dry/pink. pain 1/10 Patient states feeling better. Patient states symptoms have improved. Vital Signs: 01:30 Pain 8/10; vc1 01:31 BP 141 / 73; Pulse 82; Resp 17 S; Temp 97.2(T); Pulse Ox 100% on R/A; Weight 90.26 kg; ha1 Height 5 ft. 6 in. ; 02:50 BP 129 / 62; Pulse 77; Resp 17; Temp 98; Pulse Ox 99% ; Pain 0/10; rg5 01:31 Body Mass Index 32.12 (90.26 kg, 167.64 cm) ha1 01:30 Pain Scale: Adult vc1 02:50 Pain Scale: Adult rg5 ED Course: 00:52 Patient arrived in ED. im 01:13 Patient has correct armband on for positive identification. Bed in low position. Call ha1 light in reach. Side rails up X 1. Adult w/ patient. 01:19 Rani Kent MD is Attending Physician. sp3 01:31 Danny Roman, JOÃO is Primary Nurse. rg5 01:36 Triage completed. vc1 01:50 Inserted saline lock: 20 gauge in right antecubital area, using aseptic technique. ha1 Flushed with 10 mL NS. 02:18 US Extremity Venous Unilateral Ltd In Process Unspecified. EDMS 02:31 Bryan Albarran MD is Referral Physician. sp3 02:48 No provider procedures requiring assistance completed. IV discontinued, bleeding rg5 controlled, No redness/swelling at site. Pressure dressing applied. 02:49 Provided Education on: post er care. rg5 02:49 Provided Education on: NEED TO FOLLOW UP WITH ORTHO. ha1 Administered Medications: 01:50 Drug: morphine IVP or IV 2 mg IVP once over 4 mins Route: IVP; Infused Over: 4 mins; rg5 Site: right antecubital; 02:06 Follow up: Response: No adverse reaction; Marked relief of symptoms; Pain is decreased; ha1 RASS: Alert and Calm (0) 01:50 Drug: Ondansetron IVP 4 mg IVP once; over 2 minutes Route: IVP; Site: right antecubital;rg5 02:06 Follow up: Response: No adverse reaction ha1 02:36 Drug: morphine IVP or IV 2 mg IVP once over 4 mins Route: IVP; Infused Over: 4 mins; rg5 Site: right antecubital; 02:48 Follow up: Response: Pain is decreased rg5 Medication: 01:36 VIS not applicable for this client. ha1 Outcome: 02:31 Discharge ordered by . sp3 02:48 Discharged to home via wheelchair, rg5 02:48 Condition: good 02:48 Discharge instructions given to patient, 02:54 Patient left the ED. rg5 Signatures: Dispatcher [employer] EDFL Rani Kent MD MD sp3 Eleonora Amaya RN RN vc1 Eloisa Rose RN RN ha1 Germaine Al Rommel RN RN rg5 Corrections: (The following items were deleted from the chart) 01:36 01:26 Chief complaint: vc1 vc1 02:06 01:15 Chief complaint: EMS states: patient had a fall while in the bathroom with her rg5 daughter and she is also complaining of generalize weakness Chief complaint: EMS states: patient had a fall while in the bathroom with her daughter and she is also complaining of generalize weakness rg5
[2024-01-07] MEDS ORDERED: MORPHINE 2 MG/ML SYR ONE (02:38)
--- NOTE | 2024-01-07 12:04 | RAD REPORT ---
EXAM DESCRIPTION: US EXTREMITY VEINS UNILATERAL CLINICAL HISTORY: Female, 68 years old, SWELLING COMPARISON: None. TECHNIQUE: Grayscale and color/spectral Doppler ultrasound of the left lower extremity. FINDINGS: Normal flow and compressibility in the common femoral, greater saphenous, femoral, poplite al, and posterior tibial veins. No intraluminal thrombus is visualized. Visualized waveforms demonstr ate normal respiratory variability. IMPRESSION: No sonographic evidence of deep venous thrombosis in the imaged left lower extremity. Electronically signed by: Bryan Freedman MD 01/07/2024 03:26 AM CDT RP Due to temporary technical issues with the PACS/Fluency reporting system, reports are being signed by the in house radiologists without review as a courtesy to insure prompt reporting. The interpreting radiologist is fully responsible for the content of the report.
[2024-01-07 12:41] VITALS: BP 129/62; TEMP 98; O2SAT 99
== END 2024-01-07 02:54 | disposition home or self-care (01) ==
LOC: ER 00:49
DX: M25.462 Effusion, left knee (principal)
CPT/HCPCS: 93971; J2270; J2405

== ENCOUNTER 2025-03-24 00:13 | Emergency (ER) | payer OTHER ==
[2025-03-24 01:20] LABS: PT Prothrombin Time 12.1 SECONDS (10-13.0); Protime INR 1.07
[2025-03-24 01:51] LABS: Absolute Lymphocytes (CBC) 2.2 K/uL (0.7-4.9); Hematocrit 39.5 % (36.0-45.0); Hemoglobin 13.6 g/dL (12.0-15.0); MCH 29.5 pg (27.0-35.0); MCHC 34.4 g/dL (32.0-36.0); MCV 85.9 fL (80-100); MPV 6.8 fL (7.6-11.3); Nucleated RBC Absolute Count 0.0 (0-0); Nucleated Red Blood Cells % 0.2 % (0-0); RBC Red Blood Cell Count 4.60 M/uL (3.86-4.86); White Blood Count 5.80 thou/uL (4.3-10.9)
[2025-03-24 02:04] LABS: Anion Gap 8.5 mEq/L (5.0-15.0); BUN Blood Urea Nitrogen 17.0 mg/dL (7-18); Glucose Level 97.0 mg/dL (74-106); NT PRO-BNP 28.0 pg/mL (<125); Potassium 3.5 mEq/L (3.5-5.1); Troponin High Sensitivity 6.4 pg/mL (<58.9)
--- NOTE | 2025-03-24 02:28 | RAD REPORT ---
EXAM DESCRIPTION: Chest Single View CLINICAL HISTORY: 70 years Female, HTN TECHNIQUE: 1 view (Single frontal view of the chest) COMPARISON: None. FINDINGS: LINES AND TUBES: None. CARDIOVASCULAR STRUCTURES: Normal heart size. No pulmonary venous congestion. LUNGS: No confluent areas of acute consolidation. PLEURA: No layering pleural effusions. No pneumothorax. BONES: No acute osseous abnormality of the thorax. IMPRESSION: 1. No acute cardiopulmonary disease. Electronically signed by: Willaim Granados MD 03/24/2025 01:44 AM CDT 1P Due to temporary technical issues with the PACS/Evoz reporting system, reports are being apollo d by the in-house radiologist without review as a courtesy to ensure prompt reporting the interpreting radiologist is fully responsible for the content of the report. Transcribed Date/Time: 03/24/2025 2:28 AM
--- NOTE | 2025-03-24 02:32 | ER ---
Nurse's Notes [facility] Name: Nataliia Robin Age: 70 yrs Sex: Female : 1955 Arrival Date: 03/24/2025 Time: 00:13 Bed 6 Private MD: Diagnosis: Headache;Essential (primary) hypertension Presentation: 03/24 00:29 Chief complaint: Patient states: states she is not feeling well, c/o headache, feeling al5 tired, bilateral ankle swelling, heart palpitations and anxiety attacks for past 3-4 days, does admit to having stress in her life right now. Coronavirus screen: At this time, the client does not indicate any symptoms associated with coronavirus-19. Ebola Screen: No symptoms or risks identified at this time. Initial Sepsis Screen: Does the patient meet any 2 criteria? No. Patient's initial sepsis screen is negative. Does the patient have a suspected source of infection? No. Patient's initial sepsis screen is negative. Risk Assessment: Do you want to hurt yourself or someone else? Patient reports no desire to harm self or others. Onset of symptoms was March 21, 2025. 00:29 Method Of Arrival: Ambulatory al5 00:29 Acuity: ZION 2 al5 Triage Assessment: 00:30 Headache History: The patient has had previous headaches and this one is similar to al5 previous episodes. General: Appears in no apparent distress. comfortable, Behavior is calm, cooperative. Pain: Denies pain. EENT: No signs and/or symptoms were reported regarding the EENT system. Neuro: Level of Consciousness is awake, alert, obeys commands, Oriented to person, place, time, situation. Cardiovascular: Capillary refill < 3 seconds Patient's skin is warm and dry. Respiratory: Airway is patent Respiratory effort is even, unlabored, Respiratory pattern is regular, symmetrical. GI: No signs and/or symptoms were reported involving the gastrointestinal system. : No signs and/or symptoms were reported regarding the genitourinary system. Derm: Skin is intact, is healthy with good turgor, Skin is pink, warm \T\ dry. normal. Musculoskeletal: Circulation, motion, and sensation intact. Range of motion: intact in all extremities. 02:39 Pain: Pain currently is 0 out of 10 on a pain scale. Pain began gradually, Also mf3 complains of no other associated symptoms. Historical: - Allergies: 00:30 No Known Allergies; al5 - Home Meds: 00:30 gabapentin 100 mg Oral tab 1 cap 2 times per day [Active]; al5 - PMHx: 00:30 Fibromyalgia; Hypertension; Migraines; al5 - PSHx: 00:30 Cholecystectomy; Total abdominal hysterectomy; al5 - Immunization history:: Adult Immunizations up to date. - Infectious Disease History:: Denies. - Social history:: Smoking status: Patient denies any tobacco usage or history of. - Family history:: not pertinent. - Hospitalizations: : No recent hospitalization is reported. Screenin:35 [facility] ED Fall Risk Assessment (Adult) History of falling in the last 3 months, bm8 including since admission No falls in past 3 months (0 pts) Confusion or Disorientation No (0 pts) Intoxicated or Sedated No (0 pts) Impaired Gait No (0 pts) Mobility Assist Device Used No (0 pt) Altered Elimination No (0 pt) Score/Fall Risk Level 0 - 2 = Low Risk Oriented to surroundings, Maintained a safe environment, Educated pt \T\ family on fall prevention, incl call for assistance when getting out of bed, Assessed \T\ reinforced patient's understanding of fall precautions, Hourly rounding (assess needs \T\ fall precautionary measures) done, Used ambulatory aids as needed (educated on \T\ assisted with), Used gait belt as appropriate. Abuse screen: Denies threats or abuse. Nutritional screening: No deficits noted. Tuberculosis screening: No symptoms or risk factors identified. Assessment: 00:35 General: Appears in no apparent distress. comfortable, Behavior is cooperative, bm8 appropriate for age, anxious. Pain: Denies pain. Neuro: No deficits noted. Level of Consciousness is awake, alert, obeys commands, Oriented to person, place, time, situation, Appropriate for age. Cardiovascular: Heart tones S1 S2 present Capillary refill < 3 seconds in bilateral fingers Rhythm is sinus rhythm. Cardiovascular: Edema is 1+ to left ankle, left foot, left toes, right ankle, right foot and right toes. Respiratory: Airway is patent Respiratory effort is even, unlabored, Respiratory pattern is regular, symmetrical, Breath sounds are clear bilaterally. GI: No signs and/or symptoms were reported involving the gastrointestinal system. : No deficits noted. No signs and/or symptoms were reported regarding the genitourinary system. EENT: No deficits noted. No signs and/or symptoms were reported regarding the EENT system. Derm: No deficits noted. No signs and/or symptoms reported regarding the dermatologic system. Musculoskeletal: No deficits noted. No signs and/or symptoms reported regarding the musculoskeletal system. 02:12 Reassessment: Patient appears in no apparent distress at this time. Patient and/or bm8 family updated on plan of care and expected duration. Pain level reassessed. Patient is alert, oriented x 3, equal unlabored respirations, skin warm/dry/pink. Patient denies pain at this time. Patient states feeling better. Patient states symptoms have improved. Vital Signs: 00:29 BP 207 / 88; Pulse 87; Resp 18; Temp 98.4(O); Pulse Ox 98% on R/A; Weight 90.72 kg; al5 Height 5 ft. 7 in. ; 00:35 BP 199 / 81; rn 01:04 BP 151 / 76; Pulse 69; Resp 17; Temp 98.4; Pulse Ox 98% ; bm8 01:54 BP 167 / 86; Pulse 68; Resp 18; Pulse Ox 96% on R/A; mf3 02:12 BP 162 / 72; Pulse 66; Resp 18; Temp 98.4; Pulse Ox 98% ; Pain 4/10; bm8 02:30 BP 146 / 70; rn 02:38 BP 135 / 85; Pulse 67; Resp 19; Pulse Ox 97% on R/A; mf3 00:29 Body Mass Index 31.32 (90.72 kg, 170.18 cm) al5 02:12 Pain Scale: Adult bm8 [place] Coma Score: 00:35 Eye Response: spontaneous(4). Motor Response: obeys commands(6). Verbal Response: bm8 oriented(5). Total: 15. 01:04 Eye Response: spontaneous(4). Motor Response: obeys commands(6). Verbal Response: bm8 oriented(5). Total: 15. 02:12 Eye Response: spontaneous(4). Motor Response: obeys commands(6). Verbal Response: bm8 oriented(5). Total: 15. ED Course: 00:18 Patient arrived in ED. gm2 00:23 Pramod Cox MD is Attending Physician. rn 00:30 Triage completed. al5 00:30 Arm band placed on right wrist. Patient placed in the treatment room, in view of staff al5 members, on clinical research monitor, on pulse oximetry. 00:34 Popeye Bond, RN is Primary Nurse. bm8 00:35 Patient has correct armband on for positive identification. Bed in low position. Call bm8 light in reach. Side rails up X 1. Client placed on continuous cardiac and pulse oximetry monitoring. NIBP monitoring applied. nurse monitoring on. Pulse ox on. NIBP on. Door closed. Noise minimized. Warm blanket given. Pillow given. Verbal reassurance given. 01:02 No provider procedures requiring assistance completed. Initial lab(s) drawn, by ED bm8 staff, sent to lab. Inserted saline lock: 20 gauge in right antecubital area, using aseptic technique. Blood collected. Flushed with 10 mL NS. Patient maintains SpO2 saturation greater than 95% on room air. 01:03 EKG done, by ED staff, reviewed by Pramod Cox MD. bm8 01:13 XRAY Chest (1 view) In Process Unspecified. EDMS 01:13 CT Head Brain wo Cont In Process Unspecified. EDMS 01:48 Lab(s) recollected, by me, sent to lab. bm8 02:39 Provided Education on: pt educated on discharge . mf3 02:40 IV discontinued, intact, bleeding controlled, No redness/swelling at site. Pressure mf3 dressing applied. Administered Medications: No medications were administered Medication: 00:35 VIS not applicable for this client. bm8 Outcome: 02:31 Discharge ordered by . rn 02:40 Discharged to home ambulatory, mf3 02:40 Condition: stable 02:40 Discharge instructions given to patient, family, Instructed on discharge instructions, follow up and referral plans. Demonstrated understanding of instructions, follow-up care, medications, 02:41 Patient left the ED. mf3 Signatures: Dispatcher [employer] Pramod Bell MD MD rn Mitchell, Ginger 2 Popeye Bond, RN RN bm8 Pricilla Buchanan RN RN al5 Randee Harris RN RN mf3
--- NOTE | 2025-03-24 02:32 | EDPHYS ---
Physician Documentation [facility] Name: Nataliia Robin Age: 70 yrs Sex: Female : 1955 Arrival Date: 03/24/2025 Time: 00:13 Bed 6 Private MD: ED Physician Pramod Cox HPI: 03/24 01:54 This 70 yrs old Female presents to ER via Ambulatory with complaints of High Blood rn Pressure, Headache. 01:54 Patient reports 3 to 4 days of not feeling well with intermittent headaches, fatigue, rn stress and anxiety. Patient reports has been under a lot of more stress lately. No fever or chills. Does not feel ill. No chest pain or shortness of breath. Has migraines, had migraine earlier and took her migraine medication which resolved her headache. Patient reports checked her blood pressure and was elevated so came in for evaluation.. Historical: - Allergies: 00:30 No Known Allergies; al5 - Home Meds: 00:30 gabapentin 100 mg Oral tab 1 cap 2 times per day [Active]; al5 - PMHx: 00:30 Fibromyalgia; Hypertension; Migraines; al5 - PSHx: 00:30 Cholecystectomy; Total abdominal hysterectomy; al5 - Immunization history:: Adult Immunizations up to date. - Infectious Disease History:: Denies. - Social history:: Smoking status: Patient denies any tobacco usage or history of. - Family history:: not pertinent. - Hospitalizations: : No recent hospitalization is reported. ROS: 01:54 Constitutional: Negative for fever, chills, and weight loss, Eyes: Negative for injury, rn pain, redness, and discharge, Neck: Negative for injury, pain, and swelling, Cardiovascular: Negative for chest pain, palpitations, and edema, Respiratory: Negative for shortness of breath, cough, wheezing, and pleuritic chest pain, Abdomen/GI: Negative for abdominal pain, nausea, vomiting, diarrhea, and constipation, Back: Negative for injury and pain, : Negative for injury, bleeding, discharge, and swelling, MS/Extremity: Negative for injury and deformity, Skin: Negative for injury, rash, and discoloration, Neuro: Negative for weakness, numbness, tingling, and seizure, Exam: 01:54 Constitutional: This is a well developed, well nourished patient who is awake, alert, rn appears anxious. Ambulatory to room without assistance or difficulty Head/Face: Normocephalic, atraumatic. Cardiovascular: Regular rate and rhythm. No pulse deficits. Respiratory: No increased work of breathing, no retractions or nasal flaring. Abdomen/GI: Soft, non-tender MS/ Extremity: Pulses equal, no cyanosis. Neurovascular intact. Full, normal range of motion. Equal circumference. Nonpitting edema bilateral lower extremities Neuro: Awake and alert, GCS 15, oriented to person, place, time, and situation. Cranial nerves II-XII grossly intact. Motor strength 5/5 in all extremities. Sensory grossly intact. Cerebellar exam normal. Normal gait. 02:21 ECG was reviewed by the Attending Physician. rn Vital Signs: 00:29 BP 207 / 88; Pulse 87; Resp 18; Temp 98.4(O); Pulse Ox 98% on R/A; Weight 90.72 kg; al5 Height 5 ft. 7 in. ; 00:35 BP 199 / 81; rn 01:04 BP 151 / 76; Pulse 69; Resp 17; Temp 98.4; Pulse Ox 98% ; bm8 01:54 BP 167 / 86; Pulse 68; Resp 18; Pulse Ox 96% on R/A; mf3 02:12 BP 162 / 72; Pulse 66; Resp 18; Temp 98.4; Pulse Ox 98% ; Pain 4/10; bm8 02:30 BP 146 / 70; rn 02:38 BP 135 / 85; Pulse 67; Resp 19; Pulse Ox 97% on R/A; mf3 00:29 Body Mass Index 31.32 (90.72 kg, 170.18 cm) al5 02:12 Pain Scale: Adult bm8 [place] Coma Score: 00:35 Eye Response: spontaneous(4). Motor Response: obeys commands(6). Verbal Response: bm8 oriented(5). Total: 15. 01:04 Eye Response: spontaneous(4). Motor Response: obeys commands(6). Verbal Response: bm8 oriented(5). Total: 15. 02:12 Eye Response: spontaneous(4). Motor Response: obeys commands(6). Verbal Response: bm8 oriented(5). Total: 15. MDM: 00:23 Medical Screening Exam initiated rn 02:29 Differential diagnosis: hypertensive crisis, Malignant HTN, Stress reaction, anxiety. rn Data reviewed: vital signs, nurses notes, lab test result(s), EKG, radiologic studies, CT scan, plain films, and as a result, I will discharge patient. Independent interpretation of the following test(s) in the Emergency Department EKG: See my EKG interpretation above X-Ray: My interpretation is Chest x-ray images negative for pneumonia or pneumothorax per my interpretation. CT Scan: My interpretation is CT head images negative for acute hemorrhage per my interpretation. quality engineer: rate is 66 beats/min, Rhythm is normal sinus rhythm, regular, with no ectopy, Interpretation: normal rate, normal rhythm. Care significantly affected by the following chronic conditions: Hypertension, Migraines. Counseling: I had a detailed discussion with the patient and/or guardian regarding the historical points, exam findings, and any diagnostic results supporting the discharge/admit diagnosis, lab results, radiology results, the need for outpatient follow up, to return to the emergency department if symptoms worsen or persist or if there are any questions or concerns that arise at home. Response to treatment: the patient's symptoms have markedly improved after treatment, the patient is now symptom free, and as a result, I will discharge patient. Special discussion: I discussed with the patient/guardian in detail that at this point there is no indication for admission to the hospital. It is understood, however, that if the symptoms persist or worsen the patient needs to return immediately for re-evaluation. 02:30 ED course: Blood pressure down to 146/70 without intervention, no acute findings of rn endorgan damage on imaging or blood work. Needs to follow-up with PCP for further blood pressure management and recommend blood pressure diary. I have personally reviewed all of the results, including but not limited to blood tests and imaging deemed necessary to safely discharge this patient at this time. All results given to and printed out for patient. I personally went over all the results with the patient and answered all questions. Patient will follow-up with PCP and or specialist as discussed. Return precautions given and understood.. 02:31 Counseling: I had a detailed discussion with the patient and/or guardian regarding the rn presence of at least one elevated blood pressure reading (>120/80) during this emergency department visit. Special discussion: I have referred the patient to see his PCP for further evaluation of high blood pressure. 03/24 00:35 Order name: Basic Metabolic Panel; Complete Time: 02:16 rn 03/24 00:35 Order name: CBC with Diff; Complete Time: 01:54 rn 03/24 00:35 Order name: NT PRO-BNP; Complete Time: 02:16 rn 03/24 00:35 Order name: PT-INR; Complete Time: 01:54 rn 03/24 00:35 Order name: Troponin HS; Complete Time: 02:16 rn 03/24 00:35 Order name: XRAY Chest (1 view) rn 03/24 00:35 Order name: CT Head Brain wo Cont rn 03/24 00:35 Order name: Cardiac monitoring; Complete Time: 01: rn 03/24 00:35 Order name: EKG - Nurse/Tech; Complete Time: : rn 03/24 00:35 Order name: IV Saline Lock; Complete Time: : rn 03/24 00:35 Order name: Labs collected and sent; Complete Time: : rn 03/24 00:35 Order name: O2 Per Protocol; Complete Time: : rn 03/24 00:35 Order name: O2 Sat Monitoring; Complete Time: 01: rn 03/24 01:26 Order name: Labs - recollect needed; Complete Time: 01:48 kmf EC:21 Rate is 71 beats/min. Rhythm is regular. QRS [place] is Normal. [place] interval is normal. QRS rn interval is normal. QT interval is normal. No Q waves. T waves are Normal. No ST changes noted. Clinical impression: NSR w/ Non-specific ST/T Changes. Interpreted by me. Reviewed by me. Administered Medications: No medications were administered Disposition Summary: 03/24/25 02:31 Discharge Ordered Notes: Location: Home rn Problem: new rn Symptoms: have improved rn Condition: Stable rn Diagnosis - Headache rn - Essential (primary) hypertension rn Followup: rn - With: Private Physician - When: As needed - Reason: Recheck today's complaints, Re-evaluation by your physician Discharge Instructions: - Discharge Summary Sheet rn - Hypertension, Adult rn - Managing Your Hypertension rn Forms: - Medication Reconciliation Form rn - Antibiotic international project manager - Prescription Opioid Use rn - Patient Portal Instructions rn - Leadership Thank You Letter rn Signatures: Dispatcher [employer] Pramod Bell MD MD rn Forrester, Kelsey Maroul [facility] Pricilla Buchanan RN RN al5 Corrections: (The following items were deleted from the chart) 00:36 00:36 Head Brain Wo [id number].[id number] ordered. EDMS EDMS
[2025-03-24 05:15] VITALS: TEMP 98.4
[2025-03-24 05:22] VITALS: BP 135/85; O2SAT 97
--- NOTE | 2025-03-24 08:28 | RAD REPORT ---
EXAM DESCRIPTION: Head Brain Wo Cont CLINICAL HISTORY: 70 years Female, HTN;Headache TECHNIQUE: Helical CT axial images are obtained from the base of skull through the vertex without IV contrast. Multiplanar reconstruction. This exam was performed according to our departmental dose-optimization program, which includes automated exposure control, adjustment of the mA and/or kV according to patient size and/or use of iterative reconstruction technique. COMPARISON: 09/07/2022 FINDINGS: BRAIN: No infarcts. No parenchymal hemorrhage, intra-axial mass, mass effect, or midline shift. No ab normal extra-axial fluid collections. VENTRICLES: Ventricles are normal in size and configuration. No hydrocephalus. CALVARIUM: Bone windows show no skull fracture or calvarial lesions. PARANASAL SINUSES AND MASTOIDS: Visualized paranasal sinuses are clear. Mastoid air cells are clear . IMPRESSION: 1. No acute intracranial disease. Electronically signed by: William Granados MD 03/24/2025 01:46 AM CDT RP 1P Due to temporary technical issues with the PACS/Blueseed reporting system, reports are being apollo d by the in-house radiologist without review as a courtesy to ensure prompt reporting the interpreting radiologist is fully responsible for the content of the report. Transcribed Date/Time: 03/24/2025 8:27 AM
== END 2025-03-24 02:41 | disposition home or self-care (01) ==
LOC: ER 00:13
DX: R51.9 Headache, unspecified (principal); I10 Essential (primary) hypertension
CPT/HCPCS: 36415; 70450; 71045; 80048; 83880; 84484; 85025; 85610; 93005; 99284